=== PATIENT | female | born 1965 | race African-American/Black ===

== ENCOUNTER 2019-09-06 12:15 | Inpatient (IN) | payer BC ==
[~2019-09-06] VITALS: Ht 157.5 cm; Wt 81.6 kg
[2019-09-06] MEDS ORDERED: SODIUM CHLORIDE 0.9% 1,000 ML IV ONE (23:34)
[2019-09-07 00:43] LABS: BASOPHILS % 1.1 % (0.0-2.0); EOSINOPHILS % 3.7 % (0.0-5.0); HEMOGLOBIN. 13.4 g/dL (12.0-16.0); MEAN CORPUSCULAR HEMOGLOBIN 27.9 pg (28.0-32.0); MEAN CORPUSCULAR VOLUME 83.5 fL (81.0-99.0); MEAN PLATELET VOLUME 8.9 fl (7.4-10.4); MONOCYTES % 13.7 % (2.0-8.0); NEUTROPHILS % 53.5 % (40.0-76.0); PLATELET 386 x1000/uL (130-400); RED BLOOD CELL COUNT 4.79 mill/uL (4.2-5.4); RED CELL DISTRIBUTION WIDTH 15.4 % (11.6-14.6)
[2019-09-07 00:47] LABS: CHLORIDE 108 mEq/L (98-107)
[2019-09-07 00:53] LABS: ETHANOL BLOOD < 10 mg/dL
[2019-09-07 08:00] VITALS: BP 126/87
[2019-09-07] MEDS: BLOOD SUGAR DIAGNOSTIC STRIP TEST SCH ×4 (08:35→21:00)
[2019-09-07] MEDS ORDERED: DEXTROSE 50% WATER 50ML SYRINGE IV PRN (08:45)
[2019-09-07] MEDS: INSULIN LISPRO 100 UNITS/ML SUBCUT SCH ×4 (10:26→21:00)
[2019-09-07] MEDS ORDERED: NIFE-32 MT (10:34)
[2019-09-07] MEDS ORDERED: HYDR100T26 MT (10:34)
[2019-09-07] MEDS ORDERED: CLON-457 PO (10:35)
[2019-09-07] MEDS ORDERED: ATOR20TA65 PO (10:35)
[2019-09-07] MEDS ORDERED: FAMO20TA8 PO (10:36)
[2019-09-07] MEDS ORDERED: METO-539 MT (10:36)
[2019-09-07 12:00] VITALS: BP 120/88
[2019-09-07] MEDS ORDERED: GUAIFENESIN 200MG/10ML SUGAR FREE UDC PO PRN (14:30)
[2019-09-07] MEDS ORDERED: IPRATROPIUM/ALBUTEROL 0.5-3(2.5)MG/3ML NEB HHN PRN (14:30)
[2019-09-07] MEDS ORDERED: DIPHENHYDRAMINE 50MG/ML VIAL IV PRN (14:30)
[2019-09-07] MEDS ORDERED: LEVOFLOXACIN 500MG PREMIX 100 ML IV SCH (14:30)
[2019-09-07] MEDS ORDERED: LORAZEPAM 2MG/ML CPJ IV PRN (14:30)
[2019-09-07] MEDS ORDERED: BISACODYL 10MG SUPP PR PRN (14:30)
[2019-09-07] MEDS ORDERED: HYDROCODONE/ACETAMINOPHEN 5/325MG TABLET PO PRN (14:30)
[2019-09-07] MEDS ORDERED: CLONIDINE 0.1MG TABLET PO PRN (14:30)
[2019-09-07] MEDS: DEXT 5%/0.45% NACL 1000ML 1,000 ML IV SCH (14:59)
[2019-09-07 15:08] LABS: BG BASE EXCESS 1.7 mmol/L (-2.0-2.0); BG CARBOXYHEMOGLOBIN 0.3 % (0.5-1.5); BG DEOXYHEMOGLOBIN 3.2 % (0.0-5.0); BG FRACTION INSPIRED OXYGEN 21; BG HCO3 ACT 24.8 mmol/L (22.0-26.0); BG METHEMOGLOBIN 0.2 % (0.0-1.5); BG OXYGEN SATURATION 96.8 % (92.0-98.5); BG OXYHEMOGLOBIN 96.3 % (94.0-97.0); BG PCO2 34.5 mmHg (35.0-45.0); BG PH 7.475 (7.350-7.450); BG PO2 84.6 mmHg (75.0-100.0); BG SAMPLE SITE RIGHT BRACHIAL; BG TOTAL HEMOGLOBIN 13.3 g/dL (12.0-18.0); BG VENT MODE ROOM AIR
[2019-09-07 16:00] VITALS: BP 120/86
[2019-09-07] MEDS ORDERED: LEVOFLOXACIN 500MG PREMIX 100 ML IV NR ×2 (16:00→20:00)
[2019-09-07] MEDS ORDERED: KCL 20MEQ/100ML PREMIX 100 ML IV NR (16:00)
[2019-09-07 17:58] LABS: PROTHROMBIN TIME 10.8 sec (9.6-11.0)
[2019-09-07 20:00] VITALS: BP 158/89
[2019-09-08] VITALS: BP 156/81
[2019-09-08 04:00] VITALS: BP 150/94
[2019-09-08 06:54] LABS: HEMATOCRIT 33.5 % (36.0-48.0); HEMOGLOBIN 11.5 g/dL (12.0-16.0); MEAN CORPUSCULAR HEMOGLOBIN 28.6 pg (28.0-32.0); MEAN CORPUSCULAR VOLUME 82.9 fL (81.0-99.0); PLATELET 257 x1000/uL (130-400); RED BLOOD CELL COUNT 4.03 mill/uL (4.2-5.4); RED CELL DISTRIBUTION WIDTH 15.3 % (11.6-14.6)
[2019-09-08] MEDS: INSULIN LISPRO 100 UNITS/ML SUBCUT SCH ×4 (07:37→20:37)
[2019-09-08] MEDS: BLOOD SUGAR DIAGNOSTIC STRIP TEST SCH ×4 (07:37→20:36)
[2019-09-08 08:00] VITALS: BP 136/84
[2019-09-08] MEDS ORDERED: POTASSIUM CHLORIDE 20MEQ TABLET SR PO NR (10:00)
[2019-09-08] MEDS ORDERED: POTASSIUM CHLORIDE INJ 40 MEQ in DEXT 5% WATER 250 ML IV ONE (10:45)
[2019-09-08 12:00] VITALS: BP 140/75
[2019-09-08] MEDS: LEVOFLOXACIN 250MG PREMIX 50 ML IV SCH (13:27)
[2019-09-08] MEDS: HYDRALAZINE HCL 100MG TABLET PO SCH ×2 (13:27→21:36)
[2019-09-08] MEDS: DEXT 5%/0.45% NACL 1000ML 1,000 ML IV SCH ×2 (13:31→17:05)
[2019-09-08 16:00] VITALS: BP 135/75
[2019-09-08] MEDS ORDERED: LEVOFLOXACIN 250MG PREMIX 50 ML IV SCH (16:00)
[2019-09-08 20:00] VITALS: BP 158/94
[2019-09-08] MEDS: IPRATROPIUM/ALBUTEROL 0.5-3(2.5)MG/3ML NEB HHN SCH (20:11)
[2019-09-08] MEDS: OSELTAMIVIR 75MG CAPSULE PO SCH (20:29)
[2019-09-09] VITALS: BP 152/62
[2019-09-09] MEDS: IPRATROPIUM/ALBUTEROL 0.5-3(2.5)MG/3ML NEB HHN SCH ×4 (02:06→20:32)
[2019-09-09 04:00] VITALS: BP 146/89
[2019-09-09] MEDS: HYDRALAZINE HCL 100MG TABLET PO SCH ×3 (05:24→21:08)
[2019-09-09] MEDS: BLOOD SUGAR DIAGNOSTIC STRIP TEST SCH ×4 (06:42→21:52)
[2019-09-09] MEDS: DEXT 5%/0.45% NACL 1000ML 1,000 ML IV SCH ×2 (07:46→19:53)
[2019-09-09] MEDS: INSULIN LISPRO 100 UNITS/ML SUBCUT SCH ×4 (07:50→21:55)
[2019-09-09 08:00] VITALS: BP 156/100
[2019-09-09] MEDS: OSELTAMIVIR 75MG CAPSULE PO SCH ×2 (09:27→20:06)
[2019-09-09 12:00] VITALS: BP 153/88
[2019-09-09] MEDS: LEVOFLOXACIN 250MG PREMIX 50 ML IV SCH (13:54)
[2019-09-09 16:00] VITALS: BP 155/81
[2019-09-09 16:22] LABS: HEMATOCRIT 34.3 % (36.0-48.0); HEMOGLOBIN 11.8 g/dL (12.0-16.0); MEAN CORPUSCULAR HEMOGLOBIN 28.6 pg (28.0-32.0); MEAN CORPUSCULAR VOLUME 83.4 fL (81.0-99.0); PLATELET 301 x1000/uL (130-400); RED BLOOD CELL COUNT 4.11 mill/uL (4.2-5.4)
[2019-09-09 20:00] VITALS: BP 152/82
[2019-09-09] MEDS ORDERED: POTASSIUM CHLORIDE 20MEQ TABLET SR PO NR (21:00)
[2019-09-10] VITALS: BP 169/78
[2019-09-10] MEDS: IPRATROPIUM/ALBUTEROL 0.5-3(2.5)MG/3ML NEB HHN SCH ×3 (02:07→14:24)
[2019-09-10 04:00] VITALS: BP 130/68
[2019-09-10] MEDS: HYDRALAZINE HCL 100MG TABLET PO SCH ×2 (05:26→18:23)
[2019-09-10] MEDS: INSULIN LISPRO 100 UNITS/ML SUBCUT SCH ×3 (06:51→17:50)
[2019-09-10] MEDS: BLOOD SUGAR DIAGNOSTIC STRIP TEST SCH ×3 (06:51→17:20)
[2019-09-10 08:00] VITALS: BP 138/91
[2019-09-10 08:58] LABS: CLARITY URINE CLEAR (CLEAR); COLOR URINE YELLOW (YELLOW); KETONES URINE NEGATIVE (NEGATIVE); LEUKOCYTE ESTERASE URINE NEGATIVE (NEGATIVE); NITRITE URINE NEGATIVE (NEGATIVE); OCCULT BLOOD URINE NEGATIVE (NEGATIVE); PROTEIN URINE 2+ (NEGATIVE); SPECIFIC GRAVITY URINE 1.012 (1.005-1.030); UROBILINOGEN URINE 0.2 E.U./dL (0.2-1.0)
[2019-09-10] MEDS: OSELTAMIVIR 75MG CAPSULE PO SCH (11:48)
[2019-09-10] MEDS: DEXT 5%/0.45% NACL 1000ML 1,000 ML IV SCH (11:49)
[2019-09-10 12:00] VITALS: BP 141/91
[2019-09-10 16:00] VITALS: BP 137/86
[2019-09-10 17:52] VITALS: BP 138/91
[2019-09-10] MEDS: LEVOFLOXACIN 250MG PREMIX 50 ML IV SCH (18:26)
[2019-09-10] MEDS ORDERED: OSELTAMIVIR 30MG CAPSULE PO SCH (21:00)
== END 2019-09-10 20:05 | DRG 153 ==
LOC: ER 12:15 → 6EST 09-07 03:54 → EDBEDREQDT 09-07 04:05 → EDBEDREQTM 09-07 04:05 → EDBEDREQSVC 09-07 04:05 → EDBEDREQ 09-07 04:05 → ENRESERV 09-07 07:12
PROVIDERS: ADMIT Internal Medicine; ATTEND Internal Medicine
DX: J11.1 Influenza due to unidentified influenza virus with other respiratory manifestations (principal); I31.3 Pericardial effusion (noninflammatory); B34.9 Viral infection, unspecified; K57.90 Diverticulosis of intestine, part unspecified, without perforation or abscess without bleeding; J44.9 Chronic obstructive pulmonary disease, unspecified; N18.9 Chronic kidney disease, unspecified; I13.10 Hypertensive heart and chronic kidney disease without heart failure, with stage 1 through stage 4 chronic kidney disease, or unspecified chronic kidney disease; E11.22 Type 2 diabetes mellitus with diabetic chronic kidney disease; E87.6 Hypokalemia; R47.02 Dysphasia; R62.7 Adult failure to thrive; Z85.3 Personal history of malignant neoplasm of breast; Z91.81 History of falling; Z86.73 Personal history of transient ischemic attack (TIA), and cerebral infarction without residual deficits; Z98.891 History of uterine scar from previous surgery; I25.2 Old myocardial infarction; Z87.440 Personal history of urinary (tract) infections; Z86.19 Personal history of other infectious and parasitic diseases; Z88.1 Allergy status to other antibiotic agents; Z88.8 Allergy status to other drugs, medicaments and biological substances; Z79.899 Other long term (current) drug therapy
CPT/HCPCS: 36415; 36600; 71045; 80048; 80053; 80320; 81003; 82140; 82375; 82378; 82805; 82962; 83605; 83735; 84145; 84484; 85025; 85027; 87077; 87186; 87804; 93005; 94640; 96361; 96365; 97116; 97162; 97530; 99285; J1815; J1956; J3480; J7030; J7620; A4315; G0480